=== PATIENT | female | born 1945 | race Caucasian/White ===

== ENCOUNTER 2025-04-27 19:38 | Emergency (ER) | payer MEDICARE, SELFPAY ==
[2025-04-27 19:41] VITALS: BP 168/93; PULSE 90; RESP 18; TEMP 36.3; O2SAT 99
[2025-04-27 19:45] VITALS: BP 168/93; PULSE 90; RESP 18; TEMP 36.3; O2SAT 98
[2025-04-27 21:13] VITALS: BP 190/107; PULSE 87; RESP 18; TEMP 36.8; O2SAT 98; BMI 35.9
[2025-04-27 22:00] VITALS: BP 165/93; PULSE 79; RESP 18; TEMP 36.6; O2SAT 98
[2025-04-27] MEDS: Morphine 4 MG/ML Syringe IV (22:15)
[2025-04-27] MEDS: Ondansetron 4 MG/2 ML Vial IV (22:16)
[2025-04-27] MEDS: 0.9% Normal Saline (1000mL) 1,000 ML 999 ML IV (22:16)
--- NOTE | 2025-04-27 22:35 | EDS_ITS ---
HPI History of Present Illness Chief Complaint: Lower Extremity Injury Narrative Narrative: Patient is a 79-year-old female who presents to the emergency department chief complaint of left calf pain. Patient states that this all started from March 28 and has been going on for approximately 5 weeks. Patient states that she has seen multiple physicians and been to her primary care physician in the ER done physical therapy has had x-rays, ultrasound of her leg for blood clots. She states that she cannot take the pain anymore therefore she came here for the valuation management. States that her pain has been waxing and waning and was at times will be get progressively worse. She states that she has not been getting much sleep therefore she came here for further evaluation management. Patient states that she was at an emergency department recently and was diagnosed with diabetes was started on's medication and she was noted to have low potassium as well for which she was started on potassium supplementation. Patient denies any new injuries or trauma. Denies any history of blood clots. PFSH PFSH Home Medications ?Medication ?Instructions ?Recorded ?Last Taken ?Type enalapril 10 1 tab PO DAILY 04/27/25 Unkn own History mg-hydrochlorothiazide 25 mg tablet (Vaseretic) naproxen 500 mg tablet 500 mg PO BID 04/27/25 Unkno wn History potassium chloride PO DAILY 20 04/27/25 Unknown History cyclobenzaprine 10 mg tablet 10 mg PO TID PRN muscle s pasm #20 04/28/25 Unknown Rx tabs Allergy/AdvReac Type Severity Reaction Status Date / Time Penicillins (PCN) Allergy Severe Itching Verified 04/27/25 19:47 amlodipine AdvReac Severe Other Verified 04/27/25 19:47 Social History Smoking Status: Never smoker ROS ROS ED ROS Narrative Constitutional: Denies fevers, chills Neurological: Denies numbness, weakness, tingling Musculoskeletal: Complains of left calf pain as noted above Skin: Denies any rashes or lesions EXAM Physical Exam Narrative Exam Narrative: General: Patient resting comfortably did not appear to be in acute distress Head: Atraumatic, normocephalic Eyes: PERRL bilaterally, EOMI bilaterally, no conjunctival injection noted Neck: Soft and supple, trachea midline Cardiovascular: Regular rate Musculoskeletal: Left lower extremity compartments are soft and compressible, patient does have tenderness to palpation on the medial aspect of her left calf this is pinpoint in nature, although bony prominence palpated joints taken to full range of motion no pain elicited Extremities: DP pulses +2/4 in the bilateral lower extremities, no pedal edema on exam Neurological: Patient follow commands and that she was at [facility] year is 2024. Sensation grossly intact Skin: Warm, dry, tact no rashes or lesions noted Const Vital Signs: 04/27/25 19:41 04/27/25 19:45 04/27/25 21:13 Temperature 97.3 F L 97.3 F L 98.3 F Temperature Source Temporal Oral Oral Pulse Rate 90 90 87 Respiratory Rate 18 18 18 Blood Pressure 168/93 H 168/93 H 190/107 H Blood Pressure Mean 118 118 134 Pulse Ox 99 98 98 Oxygen Delivery Method Room Air 04/27/25 22:00 04/27/25 23:38 Temperature 97.8 F Temperature Source Oral Pulse Rate 79 82 Respiratory Rate 18 24 H Blood Pressure 165/93 H 196/91 H Blood Pressure Mean 117 126 Pulse Ox 98 94 Oxygen Delivery Method Room Air Room Air MDM MDM MDM Narrative Medical decision making narrative: Patient is a 79-year-old female who presented to the emergency department chief complaint of left calf pain. On the differential diagnose includes but not limited to musculoskeletal strain, musculoskeletal contusion, electrolyte abnormality. Once workup is obtained reviewed she will be reevaluated. Patient has not had any new injuries therefore this point in time do not feel further imaging is warranted. Patient be given IV fluids morphine Zofran. Patient's sodium was noted to be 134, potassium normal at 3.9, creatinine normal at 0.71, magnesium level is normal at 1.6. Reevaluation of patient she was still having pain therefore we will try Norflex. On reevaluation the patient she states that she is feeling better and would like to go home at this point in time. Patient be given prescription for cyclobenzaprine she was advised to rotate Tylenol and ibuprofen [id number] for pain control and follow-up with her doctor and continue physical therapy as well. She is agreeable this plan as well as family bedside all question concerns answered she was discharged home in stable condition Lab Data Labs: Laboratory Results - last 24 hr 04/27/25 12:20 Sodium 134 Potassium 3.9 Chloride 100 Carbon Dioxide 17.8 L Anion Gap 16 H BUN 23 H Creatinine 0.71 Estim Creat Clear Calc 60.15 Est GFR (MDRD) Non-Af 87 BUN/Creatinine Ratio 32.7 H Glucose 250 H Calcium 9.7 Magnesium 1.6 Discharge Plan Triage Chief Complaint: Lower Extremity Injury ED Provider: Nick Reese Dx/Rx/DC Orders Clinical Impression: Pain of left calf Prescriptions: New cyclobenzaprine 10 mg tablet 10 mg PO TID PRN (Reason: muscle spasm) Qty: 20 0RF No Action potassium chloride [K-Dur] PO DAILY enalapril-hydrochlorothiazide [Vaseretic] 10-25 mg tablet 1 tab PO DAILY naproxen 500 mg tablet 500 mg PO BID Primary Care Provider: Mihai Willson Referrals: Mihai Willson PA [Primary Care Provider] - Activity Restrictions/Additional Instructions: Your potassium was normal your magnesium was normal. Rotate Tylenol and ibuprofen [id number] for pain control when you do this you can take something every 3 hours max dose of ibuprofen 24 hours 3200 mg max dose of Tylenol in 24 hours 4000 mg. Use the muscle relaxer as prescribed do not operate anything under the influence of this medication will make you sleepy drowsy. Follow-up your doctor in the outpatient setting return with any other concerns Print Language: Lao Disposition Disposition: Home, Self Care
[2025-04-27 22:49] LABS: Anion Gap 16 (5-15); BUN 23 mg/dL (4-19); BUN/Creat Ratio 32.7 RATIO (10-20); Calcium,Total 9.7 mg/dL (7.6-11.0); Carbon Dioxide 17.8 mmol/L (21.0-32.0); Chloride 100 mmol/L (98-108); Creatinine, Serum 0.71 mg/dL (0.70-1.20); EST Glomerular Filtration Rate 87 (>60); Estimated Creatinine Clearance 60.15 ml/min (50-250); Glucose 250 mg/dL (70-99); Magnesium 1.6 mg/dL (1.5-2.2); Potassium 3.9 mmol/L (3.3-5.1); Sodium Level 134 mmol/L (133-145)
[2025-04-27] MEDS: Orphenadrine 60 MG/2 ML Ampul IV (23:34)
[2025-04-27 23:38] VITALS: BP 196/91; PULSE 82; RESP 24; O2SAT 94
[2025-04-28 00:32] VITALS: BP 164/79; PULSE 91; RESP 25; TEMP 36.4; O2SAT 97
== END 2025-04-28 00:34 | disposition home or self-care (01) ==
PROVIDERS: Emergency Provider Emergency Medicine; PCP Physician Assistant; Visit Provider Emergency Medicine
DX: M79.662 Pain in left lower leg (principal); E11.9 Type 2 diabetes mellitus without complications; E87.6 Hypokalemia; Z79.899 Other long term (current) drug therapy
CPT/HCPCS: 80048; 83735; 96361; 96374; 96375; 99282; A4216; J2405